=== PATIENT | male | born 1955 | race Caucasian/White ===

== ENCOUNTER 2016-06-28 07:40 | Emergency (ER) | payer OTHER ==
[~2016-06-28] VITALS: Ht 157.5 cm; Wt 74.0 kg
[2016-06-28 07:46] VITALS: Ht 157.5 cm; Wt 74.0 kg
[2016-06-28 08:13] LABS: URINE BLOOD (Dip) POC Negative (NEGATIVE)
[2016-06-28] MEDS ORDERED: HYDR25SU23 PR (08:33)
--- NOTE | 2016-06-28 10:16 | ERD ---
DATE OF SERVICE: HISTORY OF PRESENT ILLNESS: The patient is a 61-year-old male coming in complaining of rectal pain for a year. The patient states that he has no burning with urination. He has had no penile dischar ge, no pain with his testicles. He has had no abdominal pain. He states he has been putting cream around his anus which is helping his symptoms, but he does not know why he has continued pain. He s tates the pain is constant. He has had normal bowel movements, no blood in his stool. No fevers. PAST MEDICAL HISTORY: Denies medical problems. ALLERGIES TO MEDICATIONS: DENIES. PAST SURGICAL HISTORY: Hernia surgery. SOCIAL HISTORY: Smokes 1 to 2 cigarettes a day. REVIEW OF SYSTEMS: A 12-point review of systems was done. Refer to HPI for positives, all other sy stems negative. PHYSICAL EXAMINATION VITAL SIGNS: Temperature 98, pulse 88, blood pressure 135/87, respiratory rate 20, O2 saturation 97 % on room air. Pain intensity is 7/10. GENERAL: The patient is well appearing, well nourished, no acute distress. HEART: Regular rate and rhythm. No murmurs, clicks, rubs or gallops. No S3 or S4. CHEST: Clear to auscultation bilaterally. There are no rales, wheezes or rhonchi. HEENT: Atraumatic. Conjunctivae are pink. Pupils equal, round, and reactive to light. There is no s cleral icterus. Tympanic membranes clear bilaterally. Oropharynx clear. No nystagmus or photophobia . ABDOMEN: Soft, nontender and nondistended. Good bowel sounds. No rebound or guarding. No gross cara tonitis. No gross organomegaly or masses. No Llamas sign or McBurney point tenderness. RECTAL: The patient has external hemorrhoids seen on exam. There is no surrounding erythema, no fl uctuance, no induration. GENITOURINARY: Patient is circumcised. Patient does not have erythema or tenderness to palpation o juan the testicles, there is no inguinal lymphadenopathy. No masses or lesions. EMERGENCY ROOM COURSE: The patient had his urine checked in the ER. Patient's urine showed negativ e leukocytes, negative nitrites, negative blood, negative ketones. Small glucose. DIAGNOSIS: Hemorrhoids. MEDICAL DECISION MAKING: I have low suspicion for diverticulitis or deep tracking fistula. I have low suspicion for abscess formation. I have low suspicion for testicular emergency. The patient's exams are nonconcerning, urine is within normal limits. I have low suspicion for nephrolithiasis, e xam is within normal limits. I have low suspicion for prostatitis as patient is afebrile and does n ot have tenderness to palpation over the prostate. DISCHARGE: The patient is discharged stable. Patient is given prescription for Anusol and told to follow up with primary care within 1 to 2 days for reevaluation. Patient was told if symptoms progr ess or worsen to return to the ER. All other questions answered at time of discharge. Discharge ortega mmary given at the time of departure. Patient understood and complied with plan. Dictated By: WILLIE SALMERON PA for [facility]/LEIGHANN Conf#: [id number] DID#: [id number]
== END 2016-06-28 08:41 | disposition home or self-care (01) ==
LOC: FTE 07:40
DX: K64.4 Residual hemorrhoidal skin tags (principal)
CPT/HCPCS: 81003; Z7502; 99284